=== PATIENT | female | born 1990 | race African-American/Black ===

== ENCOUNTER 2017-05-07 11:13 | Emergency (ER) | payer SELFPAY ==
[2017-05-07] MEDS ORDERED: Bacitracin Zinc 1 Packet ONE (12:53)
[2017-05-07] MEDS ORDERED: Ibuprofen 800 MG TAB ONE (12:53)
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
== END 2017-05-07 13:20 | disposition home or self-care (01) ==
LOC: ERS 11:13
DX: L03.012 Cellulitis of left finger (principal); F17.210 Nicotine dependence, cigarettes, uncomplicated
CPT/HCPCS: 10060; 87070; 87077; 87186; 87205

== ENCOUNTER 2017-07-05 19:11 | Emergency (ER) | payer SELFPAY | END 2017-07-05 20:24 | disposition home or self-care (01) | LOC: SCSER 19:11 | DX: H00.022 Hordeolum internum right lower eyelid (principal); F17.210 Nicotine dependence, cigarettes, uncomplicated | CPT/HCPCS: 99283 ==

== ENCOUNTER 2018-02-07 10:27 | Emergency (ER) | payer SELFPAY ==
[2018-02-07] MEDS ORDERED: Cyclobenzaprine 10 MG TAB ONE (11:03)
== END 2018-02-07 11:17 | disposition home or self-care (01) ==
LOC: ERS 10:27
DX: S46.811A Strain of other muscles, fascia and tendons at shoulder and upper arm level, right arm, initial encounter (principal); F17.210 Nicotine dependence, cigarettes, uncomplicated; X58.XXXA Exposure to other specified factors, initial encounter
CPT/HCPCS: 99283

== ENCOUNTER 2018-06-05 19:48 | Emergency (ER) | payer SELFPAY | END 2018-06-05 20:44 | disposition home or self-care (01) | LOC: SCSER 19:48 | DX: S86.912A Strain of unspecified muscle(s) and tendon(s) at lower leg level, left leg, initial encounter (principal); S86.911A Strain of unspecified muscle(s) and tendon(s) at lower leg level, right leg, initial encounter; Z71.6 Tobacco abuse counseling; F17.210 Nicotine dependence, cigarettes, uncomplicated; V43.62XA Car passenger injured in collision with other type car in traffic accident, initial encounter | CPT/HCPCS: 99406 ==

== ENCOUNTER 2018-08-01 11:49 | Emergency (ER) | payer SELFPAY ==
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
[2018-08-01] MEDS ORDERED: Ketorolac Tromethamine 30 MG/ML VIAL ONE (12:46)
== END 2018-08-01 12:03 | disposition home or self-care (01) ==
LOC: ERS 11:49
DX: M54.2 Cervicalgia (principal); F17.210 Nicotine dependence, cigarettes, uncomplicated; V49.9XXA Car occupant (driver) (passenger) injured in unspecified traffic accident, initial encounter
CPT/HCPCS: 72125; 72128; 72131; 96372; J1885

== ENCOUNTER 2018-08-04 11:19 | Emergency (ER) | payer SELFPAY ==
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
[2018-08-04] MEDS ORDERED: Ondansetron ODT 4 MG TAB ONE (13:27)
[2018-08-04] MEDS ORDERED: Ketorolac Tromethamine 30 MG/ML VIAL ONE (14:33)
[2018-08-04] MEDS ORDERED: Acetaminophen 500 MG TAB ONE (14:33)
[2018-08-04] MEDS ORDERED: Metoclopramide HCl 10 MG/2 ML VIAL ONE (14:34)
== END 2018-08-04 17:00 | disposition home or self-care (01) ==
LOC: ERS 11:19
DX: R51 Headache (principal); F17.210 Nicotine dependence, cigarettes, uncomplicated
CPT/HCPCS: 70450; 96365; 96366; 96375; J1885; J2765; Q0162

== ENCOUNTER 2019-05-18 02:26 | Emergency (ER) | payer OTHER, SELFPAY ==
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
== END 2019-05-18 02:50 | disposition home or self-care (01) ==
LOC: ERS 02:26
DX: S60.221A Contusion of right hand, initial encounter (principal); F17.210 Nicotine dependence, cigarettes, uncomplicated; W23.0XXA Caught, crushed, jammed, or pinched between moving objects, initial encounter

== ENCOUNTER 2023-03-12 18:52 | Emergency (ER) | payer BC, SELFPAY ==
[2023-03-12] MEDS ORDERED: HYDROcodone/Acetaminophen 5/325 mg Tablet ONE (20:22)
== END 2023-03-12 20:37 | disposition home or self-care (01) ==
LOC: ERS 18:52
DX: K02.9 Dental caries, unspecified (principal)
CPT/HCPCS: 99282

== ENCOUNTER 2024-03-31 13:24 | Emergency (ER) | payer BC, SELFPAY ==
[~2024-03-31 13:24] MED LIST: Iopamidol-370 76% 500 ML MDV (1 ML CHARGE) ONE
[2024-03-31] MEDS ORDERED: Ketorolac Tromethamine 30 MG (1 mL) VIAL ONE (13:55)
[2024-03-31 14:13] LABS: #Basophils Less than 0.03 10x3/uL (0.0-0.2); %Basophils 0.3 % (0.0-1.0); %Eosinophils 7.6 % (0.0-10.0); %Lymphocytes 22.6 % (21.0-51.0); %Monocytes 6.7 % (0.0-10.0); %Neutrophils 62.7 % (42.0-75.0); Hematocrit 33.3 % (36.0-47.0); Hemoglobin 10.4 g/dL (12.0-16.0); Mean Corpuscular HGB CONC 31.2 g/dL (32.0-36.0); Mean Corpuscular Hemoglobin 25.6 pg (27.0-31.0); Mean Platelet Volume 8.9 fL (7.4-10.4); Platelet Count 394 10x3/uL (130-400); RBC Distribution Width 15.1 % (11.5-14.5); Red Blood Cell (RBC) Count 4.06 mill/uL (4.20-5.40)
[2024-03-31 14:32] LABS: ALT (SGPT) 17 U/L (Less than 34); AST (SGOT) 23 U/L (11-34); Albumin 3.8 g/dL (3.1-4.5); Alkaline Phosphatase 58 U/L (40-110); Anion Gap 10 mmol/L (10-20); BUN (Urea Nitrogen) 8 mg/dL (7.0-18.7); Bilirubin, Total 0.4 mg/dL (0.3-1.2); Calc. Creatinine Clearance 0 mL/min (70-130); Calcium 9.3 mg/dL (7.8-10.44); Carbon Dioxide 22 mmol/L (22-29); Chloride 108 mmol/L (98-107); Estimated GFR 116; Globulin 3.6 g/dL (2.4-3.5); Glucose 105 mg/dL (70-105); Potassium 3.2 mmol/L (3.5-5.1); Protein, Total 7.4 g/dL (6.0-8.3); Sodium 137 mmol/L (136-145)
[2024-03-31 14:33] LABS: CRP,High Sensitivity (Inhouse) 0.86 mg/dL (< or = 0.5); Uric Acid 3.4 mg/dL (2.5-6.2)
== END 2024-03-31 16:39 | disposition home or self-care (01) ==
LOC: ERS 13:24
DX: M79.645 Pain in left finger(s) (principal); F17.210 Nicotine dependence, cigarettes, uncomplicated
CPT/HCPCS: 29125; 36415; 80053; 83605; 84550; 85025; 86141; 96372; J1885